=== PATIENT | male | born 1945 | race Caucasian/White ===

== ENCOUNTER 2016-05-19 16:16 | Outpatient (CLI) | payer OTHER | END 2016-05-19 16:17 | LOC: LAB 16:16 | PROVIDERS: ATTEND Family Medicine | DX: N40.0 Benign prostatic hyperplasia without lower urinary tract symptoms (principal) | CPT/HCPCS: 36415; 84153 ==

== ENCOUNTER 2016-11-19 12:06 | Outpatient (CLI) | payer OTHER | END 2016-11-19 12:07 | LOC: OUT 12:06 | PROVIDERS: ATTEND Colon & Rectal Surgery | DX: K40.90 Unilateral inguinal hernia, without obstruction or gangrene, not specified as recurrent (principal) | CPT/HCPCS: G0463 ==

== ENCOUNTER 2017-10-04 13:51 | Outpatient (CLI) | payer OTHER | END 2017-10-04 13:52 | LOC: LAB 13:51 | PROVIDERS: ATTEND Family Medicine | DX: G62.9 Polyneuropathy, unspecified (principal); R63.4 Abnormal weight loss | CPT/HCPCS: 36415; 82607; 82746; 84443; 85651 ==